=== PATIENT | male | born 1955 | race Caucasian/White ===

== ENCOUNTER → 2018-04-27 | Outpatient (CLI) | payer OTHER ==
[~2018-04-27] MED LIST: ALBUMIN 25% 100 ML SOLN IV ONE; LIDOCAINE 1% 300 MG/30 ML SDV ONE
== END ==
LOC: FIMAGING 11:53
PROVIDERS: ATTEND Internal Medicine
PROC: 0W9G3ZZ Drainage of Peritoneal Cavity, Percutaneous Approach (ICD-10-PCS; principal; 2018-04-27)
DX: R18.8 Other ascites (principal)
CPT/HCPCS: P9047

== ENCOUNTER → 2018-06-09 | Outpatient (CLI) | payer OTHER | LOC: FIMAGING 11:44 | PROVIDERS: ATTEND Internal Medicine | PROC: 0W9F3ZZ Drainage of Abdominal Wall, Percutaneous Approach (ICD-10-PCS; principal; 2018-06-09) | DX: R18.8 Other ascites (principal) | CPT/HCPCS: P9047 ==

== ENCOUNTER → 2018-06-20 | Outpatient (CLI) | payer OTHER | LOC: FIMAGING 14:28 | PROVIDERS: ATTEND Internal Medicine | PROC: 0W9G3ZZ Drainage of Peritoneal Cavity, Percutaneous Approach (ICD-10-PCS; principal; 2018-06-20) | DX: R18.8 Other ascites (principal) | CPT/HCPCS: P9047 ==

== ENCOUNTER → 2018-06-23 | Outpatient (CLI) | payer OTHER | LOC: FIMAGING 16:10 | PROVIDERS: ATTEND Internal Medicine | PROC: 0W9G3ZZ Drainage of Peritoneal Cavity, Percutaneous Approach (ICD-10-PCS; principal; 2018-06-23) | DX: R18.8 Other ascites (principal) | CPT/HCPCS: P9047 ==

== ENCOUNTER → 2018-07-01 | Outpatient (CLI) | payer OTHER | LOC: FIMAGING 12:57 | PROVIDERS: ATTEND Internal Medicine | PROC: 0W9G30Z Drainage of Peritoneal Cavity with Drainage Device, Percutaneous Approach (ICD-10-PCS; principal; 2018-07-01) | DX: R18.8 Other ascites (principal) | CPT/HCPCS: P9047 ==

== ENCOUNTER 2018-07-08 10:04 | Inpatient (IN) | payer OTHER ==
--- NOTE | 2018-07-08 10:38 | EDPHY ---
H & P Stated Complaint: sent by pcp for low sodium Time Seen by Provider: 07/08/18 10:32 HPI/ROS: CHIEF COMPLAINT: Hyponatremia HISTORY OF PRESENT ILLNESS: 63-year-old male with cirrhosis and ascites presents with hyponatremia. On routine blood tests 2 days ago, he was noted to have a serum sodium level of 120. He was sent here by Dr. Hanna for admission. 2 weeks ago, Lasix was increased from 40 to 80 mg. Onset of mild confusion 1 week ago. Still able to do his usual activities, including going to work. Abdomen is more distended than usual, but not painful. Increased water intake recently. Denies headache, vomiting, chest pain, shortness of breath or abdominal pain. No fever or recent illness. REVIEW OF SYSTEMS: complete 10 point ROS reviewed and is negative except for the noted elements in the HPI - Personal History Current Tetanus Diphtheria and Acellular Pertussis (TDAP): Yes - Medical/Surgical History Hx Asthma: No Hx Chronic Respiratory Disease: No Hx Diabetes: No Hx Cardiac Disease: No Hx Renal Disease: No Hx Cirrhosis: No Hx Alcoholism: No Hx HIV/AIDS: No Hx Splenectomy or Spleen Trauma: No Other PMH: cirrhosis/ascities - Social History Smoking Status: Never smoked Alcohol Use: None Drug Use: None Additional Social History: - Physical Exam Exam: General Appearance: Alert, pleasant, answers questions appropriately Eyes: Pupils equal and round, scleral icterus ENT, Mouth: Mucous membranes moist Neck: Normal inspection Respiratory: Lungs are clear to auscultation Cardiovascular: Regular rate and rhythm Gastrointestinal: Abdomen is tense and distended, no tenderness Neurological: A&O, nonfocal exam Skin: Warm and dry, no rash Extremities: 1+ pedal edema Psychiatric: Mood and affect normal Constitutional: Initial Vital Signs Temperature (C) 36.5 C 07/08/18 10:14 Heart Rate 85 07/08/18 10:14 Respiratory Rate 18 07/08/18 10:14 Blood Pressure 114/70 07/08/18 10:14 O2 Sat (%) 98 07/08/18 10:14 O2 Delivery Mode Room Air Allergies/Adverse Reactions: No Known Allergies Allergy (Unverified 07/08/18 10:13) Home Medications: Medication Instructions Recorded Ciprofloxacin HCl [Ciprofloxacin] 500 mg PO DAILY 07/08/18 Furosemide [Lasix 80 MG (*)] 80 mg PO DAILY 07/08/18 Herbals/Supplements -Info Only 1 ea PO DAILY 07/08/18 Spironolactone 100 mg PO BIDDIUR 07/08/18 Medical Decision Making ED Course/Re-evaluation: This pt presents with hyponatremia, sodium level 117 today, secondary to increase in Lasix dosing and underlying advance liver disease. Minimally symptomatic, will need admission to SDU with sz precautions, plan for parascentesis, medication adjustment and fluid restriction during admission. The hospitalist service was consulted for admission. Differential Diagnosis: includes though not limited to severe dehydration, excessive water intake, medication effect, SIADH - Data Points Laboratory Results: Laboratory Results 07/08/18 10:45 07/08/18 10:45 Medications Given: Calcium Carbonate (Tums) 500 mg PO TID PRN PRN Reason: Indigestion Stop: 01/05/19 02:09 Last Admin: 07/09/18 06:14 Dose: 500 mg Albumin Human (Flexbumin 25 % (Premix)) 100 mls @ 0 mls/hr IV BID CHANELLE PRN Reason: As Directed Stop: 01/04/19 14:29 Last Admin: 07/08/18 21:23 Dose: 100 mls Discontinued Medications Albumin Human (Flexbumin 25 % (Premix)) 100 mls @ 0 mls/hr IV ONCE ONE PRN Reason: As Directed Stop: 07/08/18 14:02 Last Admin: 07/08/18 14:28 Dose: 100 mls Departure - Departure Disposition: [facility] Inpatient Acute Clinical Impression: Hyponatremia Condition: Fair
[2018-07-08 11:02] LABS: PLATELET COUNT 95 10^3/uL (150-400)
[2018-07-08] MEDS ORDERED: ONDANSETRON 4 MG/2 ML VIAL IVP PRN (13:56)
[2018-07-08] MEDS ORDERED: ACETAMINOPHEN 325 MG TAB PO PRN (13:56)
[2018-07-08] MEDS ORDERED: oxyCODONE IR 5 MG TAB PO PRN (13:56)
[2018-07-08] MEDS ORDERED: HYDROCODONE/APAP 5/325 TAB PO PRN (13:56)
[2018-07-08] MEDS ORDERED: PROMETHAZINE HCL 25 MG/ML INJ IVP PRN (13:56)
[2018-07-08] MEDS ORDERED: ONDANSETRON DISINTEGRATING 4 MG TAB PO PRN (13:56)
[2018-07-08] MEDS ORDERED: ALBUMIN 25% 100 ML IV ONE ×2 (14:01→14:13)
[2018-07-08] MEDS: ALBUMIN 25% 100 ML IV SCH ×2 (14:28→21:23)
--- NOTE | 2018-07-08 14:46 | CPEKG ---
Test Reason : OPEN Blood Pressure : / mmHG Vent. Rate : 074 BPM Atrial Rate : 074 BPM P-R Int : 135 ms QRS Dur : 098 ms QT Int : 397 ms P-R-T Axes : 036 031 044 degrees QTc Int : 441 ms Sinus rhythm Abnormal R-wave progression, early transition Confirmed by Olive Basurto ([id number]) on 07/08/2018 2:46:05 PM Referred By: Confirmed By:Olive Basurto
--- NOTE | 2018-07-08 14:52 | GCON ---
REQUESTING PHYSICIAN: Dr. Boyd. REASON FOR CONSULTATION: Hyponatremia. Briefly, Mr. 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 He does not have a prior alcohol history. He is followed in our outpatient clinic by our hepatologi st, Dr. Bosch. Recently he has had difficulty with volume management with recurrent ascites and lo wer extremity edema. In that setting he is having more frequent large-volume paracentesis and approx imately 2 weeks ago had his diuretic therapies doubled. Outpatient labs were drawn 2 days ago. Sodi um was noted to be 120. He was asked to present to the emergency room for additional evaluation. So dium in the emergency room this morning was 117. Luckily, he feels well. He reports some mild decrease in appetite and some increasing abdominal cram ping and lower extremity weakness. He reports no headache or confusion. He denies dizziness. Of note, recently he has been drinking a significant amount of water during the day, as he believes i t has been helping with his cramping. He thinks he drinks approximately 150-200 ounces of water per day. He has continued to eat solid food. He reports no change in his urine output. He does believe that with the increase in diuretic therapies his urine output had increased. PAST MEDICAL HISTORY: Includes portal hypertensive liver disease as described above. ALLERGIES: None. OUTPATIENT MEDICINES: Lasix and Aldactone as well as potassium replacement. SOCIAL HISTORY: He does not drink, smoke, or use drugs. FAMILY HISTORY: Negative for liver disease. REVIEW OF SYSTEMS: A complete 10-point review was undertaken with the patient and is negative except for those details described in the history of present illness. PHYSICAL EXAMINATION: GENERAL: This is a well-developed male in no apparent distress. HEENT: His pupils are equal, round, reactive to light and accommodation. Sclerae are nonicteric. His oropharyn x is clear. NECK: Supple without lymphadenopathy. HEART: Regular with murmurs. ABDOMEN: Distend ed with ascites. EXTREMITIES: 2+ to 3+ pitting edema. MUSCULOSKELETAL: His joints show no arthrit is. PSYCHIATRIC: Normal mood and affect. LABORATORY TESTING: White count of 7.08, hemoglobin of 12.8, hematocrit of 35.8, platelet count of 9 5. Sodium of 117, potassium of 4.0, chloride of 89, bicarb of 26, BUN of 14, creatinine of 0.8. Tot al bilirubin of 5.3, conjugated of 1.2, unconjugated of 4.1, AST of 95, ALT of 67, alkaline phosphata se of 125, albumin of 3.0. IMPRESSION/RECOMMENDATIONS: Mr. Singer has been admitted to the hospital with hyponatremia. His hypon atremia level is somewhat critical. His normal sodium has been in the normal range, greater than 130 . I suspect his hyponatremia is related to his recent increase in diuretic therapies coincident with a massive increase in free water ingestion. The differential diagnosis could also include adrenal i nsufficiency or acutely progressive liver disease. Luckily, he has no overt neurologic signs of his hyponatremia status. At this time I recommend some intravascular volume replacement with albumin, withholding his diuretic s, and closely monitoring his sodium. If the sodium does not improve with the above, we may need to consider additional maneuvers. At this time I would refrain from large-volume paracentesis. The vol ume shifts that might accompany that could confound his hyponatremia management. /[id number]/MODL
--- NOTE | 2018-07-08 15:48 | PDGENHP ---
History and Physical - Chief Complaint "my doctor told me to come here" - History of Present Illness 63 yo M with PMH of ESLD 2/[address] [place] [address] Bosch who presents after screening labs performed by his liver doctor were notable for a Na of 120 2 days ago. He notes that he has been feeling fine other than having increased abdominal distension and lower extremity swelling. In treatment of that his lasix was recently increased from 40mg to 80mg. He notes that at the same time he has been having issues with significant thirst and leg cramps at night that he attributes to dehydration and in order to manage that he has been drinking a lot of water--he states at night he drinks around 80ml of fluid and during the day at least another 160ml. He was not previously dependent on frequent paracentesis to manage his ascites but he did have a large volume tap around 1 week ago and notes that all of the fluid seems to have come back already. He is able to eat however and is breathing comfortably currently. He denies any other issues such as fever, abdominal pain, n/v, chest pain, sob. History Information - Allergies/Home Medication List Allergies/Adverse Reactions: No Known Allergies Allergy (Unverified 07/08/18 10:13) Home Medications: Ciprofloxacin HCl [Ciprofloxacin] 500 mg PO DAILY 07/08/18 [Last Taken 07/07/18] Furosemide [Lasix 80 MG (*)] 80 mg PO DAILY 07/08/18 [Last Taken 07/07/18] Herbals/Supplements -Info Only 1 ea PO DAILY 07/08/18 [Last Taken Unknown] Spironolactone 100 mg PO BIDDIUR 07/08/18 [Last Taken 07/07/18] I have personally reviewed and updated: family history, medical history, social history, surgical history - Past Medical History Additional medical history: ESLD 2/2 [place] - Surgical History Reports: no pertinent surgical hx - Family History Positive for: non-pertinent - Social History Smoking Status: Never smoked Alcohol Use: None Drug Use: None Review of Systems Review of Systems: ROS: 10pt was reviewed & negative except for what was stated in HPI & below Physical Exam Physical Exam: Temp Pulse Resp BP Pulse Ox 36.6 C 75 15 124/66 H 100 07/08/18 12:45 07/08/18 12:45 07/08/18 12:45 07/08/18 12:45 07/08/18 12:45 Constitutional: no apparent distress, chronically ill appearing Eyes: PERRL, icteric sclera Ears, Nose, Mouth, Throat: moist mucous membranes, hearing normal Cardiovascular: regular rate and rhythym, no murmur, rub, or gallop, edema (3+ pitting edema to thighs) Respiratory: no respiratory distress, no rales or rhonchi Gastrointestinal: normoactive bowel sounds, soft, non-tender abdomen, ascites Genitourinary: no bladder fullness Skin: warm, No normal color Musculoskeletal: full muscle strength, no muscle tenderness Neurologic: AAOx3 Psychiatric: interacting appropriately, not anxious, not encephalopathic Lab Data & Imaging Review 07/08/18 10:45 07/08/18 10:45 WBC 7.08 10^3/uL (3.80-9.50) 07/08/18 10:45 RBC 3.76 10^6/uL (4.40-6.38) L 07/08/18 10:45 Hgb 12.8 g/dL (13.7-17.5) L 07/08/18 10:45 Hct 35.8 % (40.0-51.0) L 07/08/18 10:45 MCV 95.2 fL (81.5-99.8) 07/08/18 10:45 MCH 34.0 pg (27.9-34.1) 07/08/18 10:45 MCHC 35.8 g/dL (32.4-36.7) 07/08/18 10:45 RDW 14.6 % (11.5-15.2) 07/08/18 10:45 Plt Count 95 10^3/uL (150-400) L 07/08/18 10:45 MPV 8.3 fL (8.7-11.7) L 07/08/18 10:45 Neut % (Auto) Not Reported 07/08/18 10:45 Lymph % (Auto) Not Reported 07/08/18 10:45 [place] % (Auto) Not Reported 07/08/18 10:45 Eos % (Auto) Not Reported 07/08/18 10:45 Baso % (Auto) Not Reported 07/08/18 10:45 Nucleat RBC Rel Count Not Reported 07/08/18 10:45 Absolute Neuts (auto) Not Reported 07/08/18 10:45 Absolute Lymphs (auto) Not Reported 07/08/18 10:45 Absolute Monos (auto) Not Reported 07/08/18 10:45 Absolute Eos (auto) Not Reported 07/08/18 10:45 Absolute Basos (auto) Not Reported 07/08/18 10:45 Absolute Nucleated RBC Not Reported 07/08/18 10:45 Immature Gran % Not Reported 07/08/18 10:45 Seg Neutrophils % 72.7 % 07/08/18 10:45 Band Neutrophils % 1.0 % 07/08/18 10:45 Lymphocytes % 6.1 % 07/08/18 10:45 Monocytes % 14.2 % 07/08/18 10:45 Eosinophils % 4.0 % 07/08/18 10:45 Basophils % 1.0 % 07/08/18 10:45 Metamyelocytes % 1.0 % 07/08/18 10:45 Myelocytes % 0.0 % 07/08/18 10:45 Promyelocytes % 0.0 % 07/08/18 10:45 Blast Cells % 0.0 % 07/08/18 10:45 Immature Gran # Not Reported 07/08/18 10:45 Absolute Seg Neuts 5.15 10^3/uL (1.70-6.50) 07/08/18 10:45 Absolute Band Neuts 0.07 10^3/uL (0.00-0.70) 07/08/18 10:45 Absolute Lymphocytes 0.43 10^3/uL (1.00-3.00) L 07/08/18 10:45 Absolute Monocytes 1.01 10^3/uL (0.30-0.80) H 07/08/18 10:45 Absolute Eosinophils 0.28 10^3/uL (0.03-0.40) 07/08/18 10:45 Absolute Basophils 0.07 10^3/uL (0.02-0.10) 07/08/18 10:45 Absolute Metamyelocyte 0.07 10^3/mL (0.00-0.00) H 07/08/18 10:45 Absolute Myelocytes 0.00 10^3/mL (0.00-0.00) 07/08/18 10:45 Absolute Promyelocytes 0.00 10^3/uL (0.00-0.00) 07/08/18 10:45 Absolute Plasma Cells 0.00 10^3/uL (0.00-0.00) 07/08/18 10:45 Nucleated RBCs 0 /100 WBC (0-0) 07/08/18 10:45 Absolute Blast Cells 0.00 10^3/uL (0.00-0.00) 07/08/18 10:45 Plasma Cells % 0.0 % 07/08/18 10:45 Platelet Estimate DECREASED (ADEQ) L 07/08/18 10:45 Sodium 117 mEq/L (135-145) L* 07/08/18 10:45 Potassium 4.0 mEq/L (3.5-5.2) 07/08/18 10:45 Chloride 89 mEq/L (97-110) L 07/08/18 10:45 Carbon Dioxide 26 mEq/l (22-31) 07/08/18 10:45 Anion Gap 2 mEq/L (6-14) L 07/08/18 10:45 BUN 14 mg/dL (7-23) 07/08/18 10:45 Creatinine 0.8 mg/dL (0.7-1.3) 07/08/18 10:45 Estimated GFR > 60 07/08/18 10:45 Glucose 80 mg/dL (70-100) 07/08/18 10:45 Calcium 8.2 mg/dL (8.5-10.4) L 07/08/18 10:45 Magnesium 1.9 mg/dL (1.6-2.3) 07/08/18 10:00 Total Bilirubin 5.3 mg/dL (0.1-1.4) H 07/08/18 10:45 Conjugated Bilirubin 1.2 mg/dL (0.0-0.5) H 07/08/18 10:45 Unconjugated Bilirubin 4.1 mg/dL (0.0-1.1) H 07/08/18 10:45 AST 95 IU/L (17-59) H 07/08/18 10:45 ALT 67 IU/L (21-72) 07/08/18 10:45 Alkaline Phosphatase 125 IU/L (38-126) 07/08/18 10:45 Total Protein 5.9 g/dL (6.3-8.2) L 07/08/18 10:45 Albumin 3.0 g/dL (3.5-5.0) L 07/08/18 10:45 Cortisol AM Sample 14.2 ug/dL (4.5-22.7) 07/08/18 10:00 Urine Color YELLOW 07/08/18 12:27 Urine Appearance CLEAR 07/08/18 12:27 Urine pH 6.0 (5.0-7.5) 07/08/18 12:27 Ur Specific Taylor 1.011 (1.002-1.030) 07/08/18 12:27 Urine Protein NEGATIVE (NEGATIVE) 07/08/18 12:27 Urine Ketones NEGATIVE (NEGATIVE) 07/08/18 12:27 Urine Blood NEGATIVE (NEGATIVE) 07/08/18 12:27 Urine Nitrate NEGATIVE (NEGATIVE) 07/08/18 12:27 Urine Bilirubin NEGATIVE (NEGATIVE) 07/08/18 12:27 Urine Urobilinogen 2.0 EU (0.2-1.0) H 07/08/18 12:27 Ur Leukocyte Esterase NEGATIVE (NEGATIVE) 07/08/18 12:27 Urine Osmolality 346 mosmo/kg (300-900) 07/08/18 12:27 Ur Random Sodium 9 mEq/L (30-90) L 07/08/18 12:27 Urine Glucose NEGATIVE (NEGATIVE) 07/08/18 12:27 Visualized and Interpreted EKG results: Yes EKG Interpretation: Positive for: normal sinsus rhythm Assessment & Plan Assessment: Hyponatremia (Acute) 63 yo M with hx of ESLD 2/2 HAW[place] presenting with severe hyponatremia # severe hyponatremia: without any neurologic changes, does appear to be a new problem with Na in the past that was wnl in the 130s. Likely multifactorial in this patient with profound volume overload but also likely intravascularly dry from increased lasix dose and contribution of heavy free water intake. At this time plan will be to hold lasix and spironolactone, free water restriction and give some albumin and recheck Na--urine na low c/w being intravascularly dry. Goal is for slow increase over the next 24 hours, and so long as he responds appropriately will continue that plan. If overcorrects or fails to correct may need to consult renal given somewhat complex picture. #ESLD: followed by Dr. Bosch, due to HAWTHORNE, appreciate GI consult, does have significant ascites but abdomen soft and patient relatively comfortable so will hold off on tap in the setting of above and volume shifts complicating picture. Holding diuretics. Bili slightly higher than previously. # anemia: mild, will follow # IP status, will need > 48 hours stay for eval/mgmt of above Patient new to my care. Old records reviewed and summarized as above. Care plan reviewed with Dr. Kelly. > 45 min critical care time spent in care of this patient in review of labs, bedside evaluation and coordination of care with other MDs.
[2018-07-09] MEDS: CALCIUM CARBONATE 500 MG CHEWABLE TAB PO PRN ×2 (02:17→06:14)
[2018-07-09 06:20] LABS: PLATELET COUNT 68 10^3/uL (150-400)
[2018-07-09] MEDS: CIPROFLOXACIN 500 MG TAB PO SCH (09:36)
[2018-07-09] MEDS: ALBUMIN 25% 100 ML IV SCH ×2 (09:39→21:07)
--- NOTE | 2018-07-09 10:23 | PDMN ---
Medical Necessity Medical necessity: [facility] systemic condition Hyponatremia- 2 days; Na ( 118) : 63 yr old with PMHx ESLD 2/2 [place] with increased abdominal distention, lower extremity swelling. anticipate > 2 MN ongoing med nec care, further monitoring and tx.
--- NOTE | 2018-07-09 11:00 | SOAPPROG ---
SOAP Progress Note Assessment/Plan: Assessment: Plan: 07/09/18 10:52 A/P 1. Ascites- refractory? With increasing doses of diuretics and significant water consumption with secondary hyponatremia. Improving. Would continue conservative care and water restriction. May need small volume tap. Monitor Na+ . Subjective: cc: Follow up hyponatremia Feeling well. Only complaint is distended abdomen. No abdominal pain. Objective: Vital Signs Temp Pulse Resp BP Pulse Ox 36.3 C 81 11 L 120/69 99 07/09/18 07:31 07/09/18 07:31 07/09/18 07:31 07/09/18 07:31 07/09/18 07:31 Laboratory Results 07/09/18 06:10 07/09/18 08:15 07/08/18 07/09/18 07/10/18 05:59 05:59 05:59 Intake Total 1100 Balance 1100 Physical Exam - Physical Exam General Appearance: alert, no apparent distress EENT: No scleral icterus (R), No scleral icterus (L) Respiratory: lungs clear, normal breath sounds Cardiac/Chest: regular rate, rhythm, No diastolic murmur, No systolic murmur Abdomen: distended, No guarding, No rebound Skin: normal color, warm/dry, No jaundice Neuro/Psych: no motor/sensory deficits, alert, normal mood/affect, oriented x 3 ICD10 Worksheet Patient Problems: Problems Problem Status Onset Hyponatremia Acute
--- NOTE | 2018-07-09 15:23 | HOSPPROG ---
Hospitalist Progress Note Assessment/Plan: 63 yo M with hx of ESLD 2/2 [place] presenting with severe hyponatremia # severe hyponatremia: without any neurologic changes, does appear to be a new problem with Na in the past that was wnl in the 130s. Likely multifactorial in this patient with profound volume overload but also likely intravascularly dry from increased lasix dose and contribution of heavy free water intake. He continues to improve appropriately with holding of diuretics, providing some albumin and a 2L water restriction. If Na continues to improve over the next 24 hours will discharge tomorrow with a plan for op f/u--goal would be Na of closer to 130 by tomorrow. #ESLD: followed by Dr. Bosch, due to HAWTHORNE, appreciate GI consult, does have significant ascites but abdomen soft and patient relatively comfortable so will hold off on tap in the setting of above and volume shifts complicating picture. Holding diuretics. Bili slightly higher than previously. # anemia: mild, will follow # IP status, will need > 48 hours stay for eval/mgmt of above Care plan discussed with and multidisciplinary team on rounds, care plan reviewed with patient and his family present at bedside. Subjective: no significant overnight events, patient notes that he continues to feel fine other than continued abdominal swelling, is eager to go home Objective: Vital Signs Temp Pulse Resp BP Pulse Ox 36.6 C 80 14 118/62 100 07/09/18 11:42 07/09/18 11:42 07/09/18 11:42 07/09/18 11:42 07/09/18 11:42 Laboratory Results 07/09/18 06:10 07/09/18 11:50 07/08/18 07/09/18 07/10/18 05:59 05:59 05:59 Intake Total 1100 Balance 1100 Constitutional: no apparent distress, chronically ill appearing Eyes: PERRL, icteric sclera Ears, Nose, Mouth, Throat: moist mucous membranes, hearing normal Cardiovascular: regular rate and rhythym, no murmur, rub, or gallop, edema (3+ pitting edema to thighs) Respiratory: no respiratory distress, no rales or rhonchi Gastrointestinal: normoactive bowel sounds, soft, non-tender abdomen, ascites Genitourinary: no bladder fullness Skin: warm, No normal color Musculoskeletal: full muscle strength, no muscle tenderness Neurologic: AAOx3 Psychiatric: interacting appropriately, not anxious, not encephalopathic ICD10 Worksheet Patient Problems: Problems Problem Status Onset Hyponatremia Acute
--- NOTE | 2018-07-09 17:10 | ASMTCMCOM ---
CM Note CM Note Notes: Reviewed chart. Pt admitted for severe hyponatremia. History includes end stage liver disease secondary to HAWTHORNE. Pt is and lives with his , Surekha. Discharge needs remain unclear at this time. No PT/OT evals ordered. Anticipate pt will likely discharge home independently when medically stable. CM will continue to follow for any potential needs. Discharge Plan: Likely independent when medically stable Date Signed: 07/09/2018 05:10 PM Electronically Signed By:Malorie Treviño RN
[2018-07-09] MEDS ORDERED: ALBUMIN 25% 100 ML IV SCH (20:11)
[2018-07-10 06:06] LABS: PLATELET COUNT 60 10^3/uL (150-400)
[2018-07-10 08:23] VITALS: BP 109/68
[2018-07-10] MEDS: CIPROFLOXACIN 500 MG TAB PO SCH (08:51)
[2018-07-10] MEDS: ALBUMIN 25% 100 ML IV SCH (08:51)
--- NOTE | 2018-07-10 09:03 | SOAPPROG ---
TANVI[facility] Progress Note Assessment/Plan: Assessment: Plan: 07/09/18 10:52 A/P 1. Ascites- refractory? With increasing doses of diuretics and significant water consumption with secondary hyponatremia. Improving. Would continue conservative care and water restriction. May need small volume tap. Monitor Na+ . 07/10/18 09:00 1.Ascites- secondary to portal htn from cirrhosis. Refractory? May be due to increasing free water consumption. With increasing doses of diuretics and significant water consumption with secondary hyponatremia. Improving. Would continue conservative care and water restriction. Will hold off on tap or paracentesis for the time being. Reinstitute diuretics as outpatient. Needs CMP check this wednesday and office f/u with [facility] next week. Ok to discharge home soon. GI will sign off. Thank you for the consultation! Subjective: cc: Follow up hyponatremia No complaints. Wants to go home and watch football. Objective: Vital Signs Temp Pulse Resp BP Pulse Ox 37.2 C 83 14 109/68 95 07/09/18 22:00 07/10/18 08:00 07/10/18 08:00 07/10/18 08:00 07/10/18 08:00 Laboratory Results 07/10/18 05:41 07/10/18 05:41 07/09/18 07/10/18 07/11/18 05:59 05:59 05:59 Intake Total 1100 2000 Balance 1100 1999 Physical Exam - Physical Exam General Appearance: alert, no apparent distress Respiratory: lungs clear, normal breath sounds Cardiac/Chest: regular rate, rhythm, edema, No bradycardia, No tachycardia Abdomen: non-tender, soft, distended, No guarding, No rebound Skin: normal color, warm/dry Extremities: pedal edema Neuro/Psych: alert, normal mood/affect, oriented x 3 ICD10 Worksheet Patient Problems: Problems Problem Status Onset Hyponatremia Acute
--- NOTE | 2018-07-10 09:57 | ASDISCHSUM ---
Discharge Information Plan Status:Home with No Needs Medically Cleared to Leave:07/09/2018 Discharge Date:07/09/2018 CM D/C Disposition:Home, Routine, Self-Care ADT D/C Disposition:Home, Routine, Self-Care Projected Discharge Date:07/10/2018 12:00 AM Transportation at D/C:Self Discharge Delay Reason: Follow-Up Date:07/10/2018 12:00 AM Discharge Slot: Final Diagnosis: Placement Information Patient Contact Information Contact Name:ARLYN Relationship: Address:[address] [place] [address] City:[place] Alternate Phone: [facility]/Zip Code:[place] [address] Email: Financial Information Financial Class:HMO and PPO Plans Primary Plan Desc:[facility] Primary Plan Number:[id number] Secondary Plan Desc: Secondary Plan Number: Assessment Information LACE LACE Length of stay for Answers: 1 day current admission Acuity / Level of Answers: Yes Care: Did the patient have an inpatient admission? Comorbidities - select Answers: Moderate or severe liver all that apply or renal disease # of Emergency department Answers: 1-2 visits in the last 6 months Score: 9 Date Signed: 07/10/2018 09:56 AM Electronically Signed By:DESTINI Krishna [facility] CM Progress Note CM Note CM Note Notes: Reviewed chart. Pt admitted for severe hyponatremia. History includes end stage liver disease secondary to [place]. Pt is and lives with his , Surekha. Discharge needs remain unclear at this time. No PT/OT evals ordered. Anticipate pt will likely discharge home independently when medically stable. CM will continue to follow for any potential needs. Discharge Plan: Likely independent when medically stable Date Signed: 07/09/2018 05:10 PM Electronically Signed By:Malorie Treviño RN Case Management Discharge Plan Note Case Management Discharge Discharge Order Complete? Answers: Yes Patient to Obtain Answers: Independently Medications Discharge Comments Notes: Pt being discharged independently. No CM needs identified. Pt has car here and will transport himself home. Date Signed: 07/10/2018 09:55 AM Electronically Signed By:DESTINI Krishna Intervention Information
== END 2018-07-10 10:20 | disposition home or self-care (01) | DRG 641 ==
LOC: F2N 12:48
PROVIDERS: ADMIT Internal Medicine; ATTEND Internal Medicine
DX: E87.1 Hypo-osmolality and hyponatremia (principal); K75.81 Nonalcoholic steatohepatitis (NASH); R18.8 Other ascites; K74.69 Other cirrhosis of liver; D64.9 Anemia, unspecified
CPT/HCPCS: P9047

== ENCOUNTER → 2018-07-13 | Outpatient (CLI) | payer OTHER | LOC: FIMAGING 10:18 | PROVIDERS: ATTEND Internal Medicine | PROC: 0W9G3ZZ Drainage of Peritoneal Cavity, Percutaneous Approach (ICD-10-PCS; principal; 2018-07-13) | DX: R18.8 Other ascites (principal) | CPT/HCPCS: P9047 ==

== ENCOUNTER → 2018-07-19 | Outpatient (CLI) | payer OTHER | LOC: FIMAGING 11:46 | PROVIDERS: ATTEND Internal Medicine | PROC: 0W9G30Z Drainage of Peritoneal Cavity with Drainage Device, Percutaneous Approach (ICD-10-PCS; principal; 2018-07-19) | DX: R18.8 Other ascites (principal) | CPT/HCPCS: P9047 ==

== ENCOUNTER → 2018-07-26 | Outpatient (CLI) | payer OTHER | LOC: FIMAGING 07:47 | PROVIDERS: ATTEND Internal Medicine | PROC: 0W9G30Z Drainage of Peritoneal Cavity with Drainage Device, Percutaneous Approach (ICD-10-PCS; principal; 2018-07-26) | DX: R18.8 Other ascites (principal) | CPT/HCPCS: P9047 ==

== ENCOUNTER → 2018-08-02 | Outpatient (CLI) | payer OTHER | LOC: FIMAGING 07:43 | PROVIDERS: ATTEND Internal Medicine | PROC: 0W9G3ZZ Drainage of Peritoneal Cavity, Percutaneous Approach (ICD-10-PCS; principal; 2018-08-02) | DX: R18.8 Other ascites (principal) | CPT/HCPCS: P9047 ==

== ENCOUNTER → 2018-08-09 | Outpatient (CLI) | payer OTHER ==
[~2018-08-09] MED LIST changes: -ALBUMIN 25% 100 ML SOLN IV ONE; +ALBUMIN 25% 50 ML SOLN IV ONE
== END ==
LOC: FIMAGING 11:56
PROVIDERS: ATTEND Internal Medicine
PROC: 0W9G3ZZ Drainage of Peritoneal Cavity, Percutaneous Approach (ICD-10-PCS; principal; 2018-08-09)
DX: R18.8 Other ascites (principal)
CPT/HCPCS: P9047

== ENCOUNTER → 2018-08-22 | Outpatient (CLI) | payer OTHER ==
[~2018-08-22] MED LIST changes: +ALBUMIN 25% 100 ML SOLN IV ONE; -ALBUMIN 25% 50 ML SOLN IV ONE
== END ==
LOC: FIMAGING 12:03
PROVIDERS: ATTEND Internal Medicine
PROC: 0W9F3ZZ Drainage of Abdominal Wall, Percutaneous Approach (ICD-10-PCS; principal; 2018-08-22)
DX: R18.8 Other ascites (principal)
CPT/HCPCS: P9047

== ENCOUNTER → 2018-08-29 | Outpatient (CLI) | payer OTHER | LOC: FIMAGING 13:41 | PROVIDERS: ATTEND Internal Medicine | PROC: 0W9F3ZZ Drainage of Abdominal Wall, Percutaneous Approach (ICD-10-PCS; principal; 2018-08-29) | DX: R18.8 Other ascites (principal); K74.60 Unspecified cirrhosis of liver | CPT/HCPCS: P9047 ==

== ENCOUNTER → 2018-09-06 | Outpatient (CLI) | payer OTHER ==
[2018-09-06 10:45] LABS: INR 1.62 (0.83-1.16); PROTIME(PATIENT) 18.5 SEC (12.0-15.0)
== END ==
LOC: FIMAGING 09:52
PROVIDERS: ATTEND Internal Medicine
PROC: 0W9F30Z Drainage of Abdominal Wall with Drainage Device, Percutaneous Approach (ICD-10-PCS; principal; 2018-09-06)
DX: R18.8 Other ascites (principal)
CPT/HCPCS: P9047

== ENCOUNTER → 2018-09-14 | Outpatient (CLI) | payer OTHER ==
[~2018-09-14] MED LIST changes: -LIDOCAINE 1% 300 MG/30 ML SDV ONE
== END ==
LOC: FIMAGING 17:15
PROVIDERS: ATTEND Internal Medicine
PROC: 0W9G3ZZ Drainage of Peritoneal Cavity, Percutaneous Approach (ICD-10-PCS; principal; 2018-09-14)
DX: J98.11 Atelectasis (principal); K74.69 Other cirrhosis of liver
CPT/HCPCS: P9047

== ENCOUNTER 2018-09-15 18:01 | Inpatient (IN) | payer OTHER | END 2018-09-16 13:32 | disposition home or self-care (01) | LOC: F3N 20:02 ==

== ENCOUNTER → 2018-09-20 | Outpatient (CLI) | payer OTHER ==
[~2018-09-20] MED LIST changes: +ALBUMIN 25% 50 ML SOLN IV ONE; +LIDOCAINE 1% 300 MG/30 ML SDV ONE
[2018-09-20 13:07] LABS: INR 1.61 (0.83-1.16); PROTIME(PATIENT) 18.4 SEC (12.0-15.0)
== END ==
LOC: FIMAGING 11:37
PROVIDERS: ATTEND Internal Medicine
PROC: 0W9G3ZX Drainage of Peritoneal Cavity, Percutaneous Approach, Diagnostic (ICD-10-PCS; principal; 2018-09-20)
DX: R18.8 Other ascites (principal)
CPT/HCPCS: P9047

== ENCOUNTER → 2018-09-26 | Outpatient (CLI) | payer OTHER ==
[~2018-09-26] MED LIST changes: -ALBUMIN 25% 50 ML SOLN IV ONE
[2018-09-26 13:06] LABS: INR 1.64 (0.83-1.16); PROTIME(PATIENT) 18.7 SEC (12.0-15.0)
== END ==
LOC: FIMAGING 11:59
PROVIDERS: ATTEND Internal Medicine
PROC: 0W9G3ZZ Drainage of Peritoneal Cavity, Percutaneous Approach (ICD-10-PCS; principal; 2018-09-26)
DX: R18.8 Other ascites (principal)
CPT/HCPCS: P9047

== ENCOUNTER → 2018-10-04 | Outpatient (CLI) | payer OTHER ==
[2018-10-04 12:21] LABS: INR 1.5 (0.83-1.16); PROTIME(PATIENT) 17.4 SEC (12.0-15.0)
== END ==
LOC: FIMAGING 11:29
PROVIDERS: ATTEND Internal Medicine
PROC: 0W9F3ZZ Drainage of Abdominal Wall, Percutaneous Approach (ICD-10-PCS; principal; 2018-10-04)
DX: R18.8 Other ascites (principal)
CPT/HCPCS: P9047

== ENCOUNTER → 2018-10-19 | Outpatient (CLI) | payer OTHER ==
[~2018-10-19] MED LIST changes: -LIDOCAINE 1% 300 MG/30 ML SDV ONE
== END ==
LOC: FIMAGING 10:16
PROVIDERS: ATTEND Internal Medicine
PROC: 0W9G3ZZ Drainage of Peritoneal Cavity, Percutaneous Approach (ICD-10-PCS; principal; 2018-10-19)
DX: R18.8 Other ascites (principal)
CPT/HCPCS: P9047

== ENCOUNTER → 2018-10-25 | Outpatient (CLI) | payer OTHER ==
[~2018-10-25] MED LIST changes: +LIDOCAINE 1% 300 MG/30 ML SDV ONE
== END ==
LOC: FIMAGING 08:34
PROVIDERS: ATTEND Internal Medicine
PROC: 0W9F3ZZ Drainage of Abdominal Wall, Percutaneous Approach (ICD-10-PCS; principal; 2018-10-25)
DX: R18.8 Other ascites (principal)
CPT/HCPCS: P9047

== ENCOUNTER → 2018-11-01 | Outpatient (CLI) | payer OTHER ==
[~2018-11-01] MED LIST changes: +ALBUMIN 25% 50 ML SOLN IV ONE
== END ==
LOC: FIMAGING 08:34
PROVIDERS: ATTEND Internal Medicine
PROC: 0W9G3ZZ Drainage of Peritoneal Cavity, Percutaneous Approach (ICD-10-PCS; principal; 2018-11-01)
DX: R18.8 Other ascites (principal)
CPT/HCPCS: P9047

== ENCOUNTER → 2018-11-07 | Outpatient (CLI) | payer OTHER ==
[2018-11-07 14:03] LABS: PLATELET COUNT 107 10^3/uL (150-400)
[2018-11-07 15:16] LABS: INR 1.97 (0.83-1.16); PROTIME(PATIENT) 21.5 SEC (12.0-15.0)
== END ==
LOC: FIMAGING 12:35
PROVIDERS: ATTEND Internal Medicine
PROC: 0W9G3ZX Drainage of Peritoneal Cavity, Percutaneous Approach, Diagnostic (ICD-10-PCS; principal; 2018-11-07)
DX: R18.8 Other ascites (principal)
CPT/HCPCS: P9047

== ENCOUNTER → 2018-11-09 | Outpatient (CLI) | payer OTHER ==
[~2018-11-09] MED LIST changes: -ALBUMIN 25% 50 ML SOLN IV ONE
== END ==
LOC: FIMAGING 09:45
PROVIDERS: ATTEND Internal Medicine
PROC: 0W9G3ZX Drainage of Peritoneal Cavity, Percutaneous Approach, Diagnostic (ICD-10-PCS; principal; 2018-11-09)
DX: R18.8 Other ascites (principal); K76.0 Fatty (change of) liver, not elsewhere classified
CPT/HCPCS: P9047

== ENCOUNTER 2018-11-12 11:57 | Emergency (ER) | payer OTHER ==
--- NOTE | 2018-11-12 12:21 | EDPHY ---
H & P Stated Complaint: paracentesis wed, still draining fluid Time Seen by Provider: 11/12/18 12:01 HPI/ROS: CHIEF COMPLAINT: Leaking from paracentesis site HISTORY OF PRESENT ILLNESS: The patient presents to the ED with leakage from a left-sided paracentesis site. The patient has cirrhosis and is currently being followed by Gastroenterology. He is currently being evaluated for a transplant. He has under fairly prescribed paracentesis regimen. He denies any acute abdominal pain or fever. He presents to the ED secondary to ongoing drainage from the paracentesis site. REVIEW OF SYSTEMS: A comprehensive 10 point review of systems is otherwise negative aside from elements mentioned in the history of present illness. Source: Patient Exam Limitations: No limitations - Personal History Current Tetanus Diphtheria and Acellular Pertussis (TDAP): Yes - Medical/Surgical History Hx Asthma: No Hx Chronic Respiratory Disease: No Hx Diabetes: No Hx Cardiac Disease: No Hx Renal Disease: No Hx Cirrhosis: Yes Hx Alcoholism: No Hx HIV/AIDS: No Hx Splenectomy or Spleen Trauma: No Other PMH: cirrhosis/ascities - Social History Smoking Status: Never smoked - Physical Exam Exam: General Appearance: Thin man, deconditioned Eyes: Pupils equal and round no pallor or injection ENT, Mouth: Mucous membranes moist Respiratory: There are no retractions, lungs are clear to auscultation Cardiovascular: Regular rate and rhythm Gastrointestinal: Distended, nontender abdomen, no peritoneal signs, scant leakage from prior paracentesis site Neurological: 5/5 strength noted all 4 extremities Skin: Warm and dry, no rashes Musculoskeletal: Neck is supple nontender Extremities: symmetrical, full range of motion Constitutional: Initial Vital Signs Temperature (C) 36.2 C 11/12/18 12:02 Heart Rate 75 11/12/18 12:02 Respiratory Rate 16 11/12/18 12:02 Blood Pressure 127/74 H 11/12/18 12:02 O2 Sat (%) 99 11/12/18 12:02 O2 Delivery Mode Room Air Allergies/Adverse Reactions: No Known Allergies Allergy (Verified 11/12/18 12:04) Home Medications: Medication Instructions Recorded Ciprofloxacin HCl [Ciprofloxacin] 500 mg PO DAILY 07/08/18 Herbals/Supplements -Info Only 1 ea PO DAILY 07/08/18 Calcium Carbonate [Tums 500MG (*)] 500 mg PO TID PRN tab.chew 07/10/18 Furosemide [Lasix 40 MG (*)] 20 mg PO DAILY #30 tab 09/16/18 Medical Decision Making ED Course/Re-evaluation: Procedure: Placement of pursestring type suture for paracentesis leakage Description: After local anesthesia and prepped with Betadine a single 4 0 Ethilon purse-string type stitch was placed around the area of the leaking paracentesis site. The patient tolerated the procedure well. The patient will be advised to have the stitches taken out in 10 days. He is given customary aftercare return precautions including plan to return to the emergency department for any increasing pain, fever or other concerns. Departure - Departure Disposition: Home, Routine, Self-Care Clinical Impression: Cirrhosis, Ascites Condition: Good Instructions: Ascites (ED) Additional Instructions: 1. Return to the ED for increasing abdominal pain, fever or other concerns. 2. Please have the stitch removed in 10 days. 3. Follow up with Gastroenterology and transplant as scheduled. Referrals: SHERRI PASTRANA MD [Primary Care Provider] - As per Instructions
[2018-11-12 12:32] VITALS: BP 110/64
== END 2018-11-12 12:31 | disposition home or self-care (01) ==
PROC: 0HQ7XZZ Repair Abdomen Skin, External Approach (ICD-10-PCS; principal; 2018-11-12)
DX: T81.89XA Other complications of procedures, not elsewhere classified, initial encounter (principal); R18.8 Other ascites; K74.60 Unspecified cirrhosis of liver

== ENCOUNTER → 2018-11-14 | Outpatient (CLI) | payer OTHER ==
[~2018-11-14] MED LIST changes: +ALBUMIN 25% 50 ML SOLN IV ONE
[2018-11-14 10:44] LABS: PLATELET COUNT 82 10^3/uL (150-400)
[2018-11-14 10:52] LABS: INR 2.34 (0.83-1.16); PROTIME(PATIENT) 24.5 SEC (12.0-15.0)
[2018-11-14 13:12] VITALS: BP 102/64
== END ==
LOC: FIMAGING 09:51
PROC: 0W9G3ZZ Drainage of Peritoneal Cavity, Percutaneous Approach (ICD-10-PCS; principal; 2018-11-14)
DX: R18.8 Other ascites (principal)
CPT/HCPCS: P9047

== ENCOUNTER → 2018-11-16 | Outpatient (CLI) | payer OTHER ==
[~2018-11-16] MED LIST changes: -ALBUMIN 25% 50 ML SOLN IV ONE
[2018-11-16 12:44] LABS: PLATELET COUNT 76 10^3/uL (150-400)
[2018-11-16 12:53] LABS: INR 2.4 (0.83-1.16)
== END ==
LOC: FIMAGING 11:44
PROVIDERS: ATTEND Internal Medicine Gastroenterology
PROC: 0W9G3ZX Drainage of Peritoneal Cavity, Percutaneous Approach, Diagnostic (ICD-10-PCS; principal; 2018-11-16)
DX: R18.8 Other ascites (principal); K74.60 Unspecified cirrhosis of liver
CPT/HCPCS: P9047

== ENCOUNTER → 2018-11-21 | Outpatient (CLI) | payer OTHER ==
[~2018-11-21] MED LIST changes: -ALBUMIN 25% 100 ML SOLN IV ONE; +ALBUMIN 25% 400 ML IV ONE; +LIDO/EPI 1% **for epidural** 30 ML SDV ONE; -LIDOCAINE 1% 300 MG/30 ML SDV ONE; +LIDOCAINE 1% 5 ML SDV ONE
[2018-11-21 09:18] LABS: INR 2.47 (0.83-1.16); PROTIME(PATIENT) 25.5 SEC (12.0-15.0)
[2018-11-21 10:24] VITALS: BP 97/55
== END ==
LOC: FIMAGING 07:54
PROVIDERS: ATTEND Internal Medicine Gastroenterology
PROC: 0W9G3ZX Drainage of Peritoneal Cavity, Percutaneous Approach, Diagnostic (ICD-10-PCS; principal; 2018-11-21)
DX: R18.8 Other ascites (principal); K72.90 Hepatic failure, unspecified without coma
CPT/HCPCS: P9047

== ENCOUNTER → 2018-11-24 | Outpatient (CLI) | payer OTHER ==
[~2018-11-24] MED LIST changes: +ALBUMIN 25% 100 ML SOLN IV ONE; -ALBUMIN 25% 400 ML IV ONE; -LIDO/EPI 1% **for epidural** 30 ML SDV ONE; -LIDOCAINE 1% 5 ML SDV ONE
[2018-11-24 09:29] LABS: INR 2.53 (0.83-1.16)
== END ==
LOC: FIMAGING 07:46
PROC: 0W9G3ZX Drainage of Peritoneal Cavity, Percutaneous Approach, Diagnostic (ICD-10-PCS; principal; 2018-11-24)
DX: R18.8 Other ascites (principal)
CPT/HCPCS: P9047

== ENCOUNTER 2018-11-29 07:53 | Outpatient (CLI) | payer OTHER | END 2018-11-29 10:09 | disposition home or self-care (01) | LOC: FIMAGING 07:53 ==

== ENCOUNTER 2018-12-01 09:41 | Outpatient (CLI) | payer OTHER | END 2018-12-01 13:00 | disposition home or self-care (01) | LOC: FIMAGING 09:41 ==

== ENCOUNTER → 2018-12-05 | Outpatient (CLI) | payer OTHER | LOC: FIMAGING 07:41 ==

== ENCOUNTER 2018-12-08 08:15 | Outpatient (CLI) | payer OTHER | END 2018-12-08 11:00 | disposition home or self-care (01) | LOC: FIMAGING 08:15 ==

== ENCOUNTER 2018-12-12 08:00 | Outpatient (CLI) | payer OTHER | END 2018-12-12 10:20 | disposition home or self-care (01) | LOC: FIMAGING 08:00 ==

== ENCOUNTER → 2018-12-15 | Outpatient (CLI) | payer OTHER | LOC: FIMAGING 07:54 ==

== ENCOUNTER → 2018-12-19 | Outpatient (CLI) | payer OTHER | LOC: FIMAGING 13:30 ==

== ENCOUNTER → 2018-12-22 | Outpatient (CLI) | payer OTHER | LOC: FIMAGING 07:47 ==

== ENCOUNTER 2018-12-26 08:10 | Outpatient (CLI) | payer OTHER | END 2018-12-26 09:50 | disposition home or self-care (01) | LOC: FIMAGING 08:10 ==

== ENCOUNTER 2018-12-29 07:40 | Outpatient (CLI) | payer OTHER | END 2018-12-29 11:10 | disposition home or self-care (01) | LOC: FIMAGING 07:40 ==

== ENCOUNTER → 2019-01-02 | Outpatient (CLI) | payer OTHER | LOC: FIMAGING 07:51 ==